=== PATIENT | female | born 1985 | race Caucasian/White ===

== ENCOUNTER 2017-05-25 10:01 | Outpatient (CLI) | payer BC ==
[~2017-05-25] VITALS: Ht 170.2 cm; Wt 113.6 kg
[~2017-05-25 10:01] MED LIST: LEVSIN 0.10.125 MG/T PO; MONO-LINYAH PO; MOTRIN 800800 MG/TAB PO; PERCOCET 325 MG1 TA2 PO; PHENERGAN 25 TA25 MG PO; PRENATAL1 TA1 PO; SPRINTEC 35 MCG1 TAB PO
[2017-05-25] MEDS ORDERED: PRENATAL FORMU1 EAC3 PO (10:11)
[2017-05-25 10:12] VITALS: BP 116/76; PULSE 93
[2017-05-25 10:15] VITALS: BP 116/76; PULSE 93; TEMP 98
[2017-05-25 11:10] VITALS: BP 107/59; BP 129/75; PULSE 73; PULSE 81; TEMP 97.9
[2017-05-25 12:15] VITALS: BP 118/74; PULSE 76; TEMP 97.9
== END 2017-05-25 12:40 | disposition home or self-care (01) ==
LOC: LDR 10:01 → LDRO 10:01
DX: Z34.83 Encounter for supervision of other normal pregnancy, third trimester (principal); Z3A.37 37 weeks gestation of pregnancy
CPT/HCPCS: OP

== ENCOUNTER 2017-05-28 15:57 | Outpatient (CLI) | payer BC ==
[~2017-05-28] VITALS: Ht 170.2 cm; Wt 113.6 kg
[~2017-05-28 15:57] MED LIST changes: +PRENATAL FORMU1 EAC3 PO
[2017-05-28 16:30] VITALS: BP 116/76; PULSE 95; TEMP 97.6
[2017-05-28 17:30] VITALS: BP 116/71; PULSE 76
== END 2017-05-28 17:30 | disposition home or self-care (01) ==
LOC: LDRO 15:57
DX: Z34.83 Encounter for supervision of other normal pregnancy, third trimester (principal); Z3A.39 39 weeks gestation of pregnancy

== ENCOUNTER → 2017-05-31 | Outpatient (CLI) | payer BC ==
[~2017-05-31] VITALS: Ht 170.2 cm; Wt 113.4 kg
[~2017-05-31] MED LIST changes: +IBU800 M1 PO
== END ==
LOC: LDRO 12:52
DX: O36.8130 Decreased fetal movements, third trimester, not applicable or unspecified (principal); Z3A.37 37 weeks gestation of pregnancy

== ENCOUNTER 2017-06-01 07:52 | Outpatient (CLI) | payer BC ==
[~2017-06-01] VITALS: Ht 170.2 cm; Wt 113.6 kg
[~2017-06-01 07:52] MED LIST changes: -IBU800 M1 PO
[2017-06-01 08:07] VITALS: BP 138/82; PULSE 91; TEMP 97.6
== END 2017-06-01 09:20 | disposition home or self-care (01) ==
LOC: LDRO 07:52
DX: Z34.83 Encounter for supervision of other normal pregnancy, third trimester (principal); Z3A.38 38 weeks gestation of pregnancy

== ENCOUNTER 2017-06-08 06:57 | Inpatient (IN) | payer BC ==
[2017-06-08] VITALS (47 sets, daily range): BP systolic 102–146; BP diastolic 54–563; PULSE 61–111; TEMP 98–98.2
[~2017-06-08] VITALS: Ht 170.2 cm; Wt 115.0 kg
[2017-06-08 08:23] LABS: BASO % 0.2 % (0.0-2.0); EOS # 0.1 (0.0-0.7); EOS % 0.6 % (0-4.0); GRAN # 9.2 (1.4-6.5); GRAN % 71.9 % (42.2-75.2); LYMPH # 2.7 (1.2-3.4); LYMPH % 20.8 % (20.0-51.0); MEAN CELL VOLUME 86 fl (80.0-100.0); MEAN CORPUSCULAR HGB CONC 33 g/dl (33.0-37.0); MEAN PLATELET VOLUME 11.1 fl (7.4-10.4); MONO # 0.8 (0.1-0.6); MONO % 6.1 % (1.7-9.3); PLATELET COUNT 223 K/mm3 (130-400); RED BLOOD COUNT 4.14 M/mm3 (4.10-5.30); REDCELL DISTRIBUTION WIDTH-CV 14.6 % (11.5-14.5); WHITE BLOOD COUNT 12.8 K/mm3 (4.8-10.8)
[2017-06-08 08:24] LABS: HEMATOCRIT 35.6 % (37.0-47.0); HEMOGLOBIN 11.8 g/dl (12.5-16.0); MEAN CORPUSCULAR HEMOGLOBIN 29 pg (27.0-31.0)
[2017-06-09 07:53] VITALS: BP 103/51; PULSE 86; TEMP 97.5
[2017-06-09] MEDS ORDERED: IBU800 M1 PO (10:47)
[2017-06-09] MEDS ORDERED: PERCOCET 325 MG1 TA2 PO (10:48)
[2017-06-09 16:20] VITALS: BP 120/81; PULSE 68; TEMP 97.5
[2017-06-09 21:00] VITALS: BP 125/75; PULSE 80; TEMP 97.4
[2017-06-10 07:25] VITALS: BP 122/78; PULSE 72; TEMP 97.3
== END 2017-06-10 11:40 | disposition home or self-care (01) | DRG 775 ==
LOC: LDR 06:57 → OB 06:57
PROVIDERS: Obstetrics & Gynecology
PROC: 10D07Z6 Extraction of Products of Conception, Vacuum, Via Natural or Artificial Opening (ICD-10-PCS; principal; 2017-06-08)
PROC: 0KQM0ZZ Repair Perineum Muscle, Open Approach (ICD-10-PCS; 2017-06-08)
DX: O36.0130 Maternal care for anti-D [Rh] antibodies, third trimester, not applicable or unspecified (principal); O76 Abnormality in fetal heart rate and rhythm complicating labor and delivery; O69.81X0 Labor and delivery complicated by cord around neck, without compression, not applicable or unspecified; O70.1 Second degree perineal laceration during delivery; Z3A.39 39 weeks gestation of pregnancy; Z37.0 Single live birth
CPT/HCPCS: J2210; J2590; J2791; J2795; J7120

== ENCOUNTER → 2018-06-23 | Outpatient (CLI) | payer BC ==
[~2018-06-23] MED LIST changes: +IBU800 M1 PO
== END ==
LOC: COL.RAD 07:05
DX: R74.8 Abnormal levels of other serum enzymes (principal); Z90.49 Acquired absence of other specified parts of digestive tract